=== PATIENT | male | born 1950 ===

== ENCOUNTER 2016-11-14 16:54 | Observation (INO) | payer MEDICARE ==
[2016-11-14] MEDS ORDERED: Enoxaparin 40 mg Syringe SC STA (17:39)
--- NOTE | 2016-11-14 17:42 | C.PDOC ---
History Of Present Illness 66 year old male was referred to the ED by PMD for evaluation of complaints of two episodes of left sided chest pain. Patient was seen by PMD Dr. Damon and had a stable EKG thought q-waves in inferior leads. Cardiac Cath @ [facility] approx 2009 without stents placed Time Seen by Provider: 11/14/16 17:17 Chief Complaint (Nursing): Chest Pain History Per: Patient History/Exam Limitations: no limitations Onset/Duration Of Symptoms: Hrs Current Symptoms Are (Timing): Gone Quality: "Pain" Associated Symptoms: denies: Nausea, Dyspnea, Diaphoresis, Syncope Exacerbating Factors: None Alleviating Factors: None Recent travel outside of the [place]: No Additional History Per: Prior Records (Dr. Damon ) Past Medical History Reviewed: Historical Data, Nursing Documentation, Vital Signs Vital Signs: Last Vital Signs Temp 98.1 F 11/14/16 17:15 Pulse 75 11/14/16 17:15 Resp 13 11/14/16 17:15 BP 113/81 11/14/16 17:15 Pulse Ox 96 11/14/16 19:12 - Medical History PMH: Denies: GERD Family History: States: Unknown Family Hx - Social History Hx Alcohol Use: Yes Hx Substance Use: No - Immunization History Hx Tetanus Toxoid Vaccination: No Hx Influenza Vaccination: Yes Review Of Systems Constitutional: Negative for: Fever, Chills Cardiovascular: Positive for: Chest Pain. Negative for: Palpitations Respiratory: Negative for: Cough, Shortness of Breath Gastrointestinal: Negative for: Nausea, Vomiting, Abdominal Pain, Diarrhea Neurological: Negative for: Weakness, Numbness Physical Exam - Physical Exam Appears: Non-toxic, No Acute Distress, Other (Patient is calm, comfortable, and pain free ) Skin: Warm, Dry, No Rash (no chest carlson ) Head: Atraumatic Eye(s): bilateral: Normal Inspection, EOMI Oral Mucosa: Moist Neck: Supple Chest: Symmetrical, No Deformity, Other (Digitally reproducable pain at mid- calvicular line at T2 ) Cardiovascular: Rhythm Regular Respiratory: Normal Breath Sounds, No Rales, No Rhonchi, No Wheezing Gastrointestinal/Abdominal: Soft, No Tenderness, No Distention, No Guarding, No Rebound Extremity: Normal ROM, No Tenderness, No Pedal Edema, No Calf Tenderness, Capillary Refill (good capillary refill, less than two seconds ), No Deformity, No Swelling Neurological/Psych: Oriented x3, Normal Speech, Normal Cognition, Normal Cranial Nerves, Normal Motor, Normal Sensation ED Course And Treatment - Laboratory Results Result Diagrams: 11/14/16 17:47 11/14/16 17:47 Lab Interpretation: Normal (trop neg.) ECG: Interpreted By Me ECG Rhythm: Sinus Rhythm ECG Interpretation: Normal Rate From EC O2 Sat by Pulse Oximetry: 96 (room air ) Pulse Ox Interpretation: Normal - Radiology CXR: Interpreted by Me CXR Interpretation: Yes: No Acute Disease Progress Note: Labs and EKG were performed. Patient was given Aspirin and Lovenox. Reassessment Condition: Unchanged (remains asymptomatic) - Physician Consult Information Outcome Of Conversation: 1729: d/w Dr. Damon- ok to Hospitalists for Cardio eval. 1729: d/w Dr. Mas- referred Cardio- agrees w ED tx and meds. 1909: d/w Hospitalist, adm for this PMD, ok to Tele Obs. Medical Decision Making Medical Decision Making: L parasternal costochondral discomfort is digitally reproducable, no trauma, no rash BUT considering inferior Q^s on EKG more concerning for cardiac etiology, especially considering pt seeking medical clearance for L knee surger (?TKR) but unable to ascertain real exercise tolerance. Tele Obs and Cardio eval w Dr. Mas. Disposition Doctor Will See Patient In The: Hospital Counseled Patient/Family Regarding: Studies Performed, Diagnosis - Disposition Disposition: HOSPITALIZED Disposition Time: 19:11 Condition: GOOD - Clinical Impression Clinical Impression: Chest discomfort, Chest wall discomfort, Abnormal EKG - Scribe Statement The provider has reviewed the documentation as recorded by the Scribjulia Larson All medical record entries made by the Zanderibe were at my direction and personally dictated by me. I have reviewed the chart and agree that the record accurately reflects my personal performance of the history, physical exam, medical decision making, and the department course for this patient. I have also personally directed, reviewed, and agree with the discharge instructions and disposition.
[2016-11-14] MEDS ORDERED: Enoxaparin 30 mg Syringe ONE (17:45)
[2016-11-14] MEDS ORDERED: Enoxaparin 80 mg Syringe ONE (17:46)
[2016-11-14 17:51] LABS: BASO % 0.5 % (0.0-2.0); EOS # 0.2 K/uL (0.0-0.7); EOS % 2.7 % (0.0-4.0); HEMATOCRIT 44.1 % (35.0-51.0); LYMPH # 1.6 K/uL (1.0-4.3); MEAN CELL VOLUME 91.7 fL (80.0-94.0); MEAN CORPUSCULAR HEMOGLOBIN 31.8 pg (27.0-31.0); MEAN CORPUSCULAR HGB CONC 34.7 g/dL (33.0-37.0); MONO # 0.4 K/uL (0.0-0.8); MONO % 7.5 % (0.0-10.0); RED CELL DISTRIBUTION WIDTH 13.7 % (11.5-14.5); WHITE BLOOD COUNT 5.9 K/uL (4.8-10.8)
[2016-11-14 18:13] LABS: CHLORIDE 105 mmol/L (98-107); SODIUM 140 mmol/L (132-148)
[2016-11-14 18:14] LABS: POTASSIUM 3.5 mmol/L (3.6-5.2)
[2016-11-14 18:15] LABS: GFR AFRICAN-AMERICAN > 60
[2016-11-14 18:16] LABS: ALB/GLOB RATIO 1.4 (1.0-2.1); ALKALINE PHOSPHATASE 80 U/L (38-126); ALT/SGPT 32 U/L (21-72); AST/SGOT 21 U/L (17-59); BILIRUBIN,TOTAL 0.7 mg/dL (0.2-1.3); BLOOD UREA NITROGEN 16 mg/dL (9-20); CALCIUM 9.3 mg/dl (8.6-10.4); CARBON DIOXIDE 25 mmol/L (22-30); GLUCOSE,RANDOM 125 mg/dL (75-110); TOTAL PROTEIN 7.1 g/dL (6.3-8.3)
--- NOTE | 2016-11-14 18:56 | RAD ---
HISTORY: SOB COMPARISON: None available. TECHNIQUE: Chest, one view. FINDINGS: Examination limited by habitus. LUNGS: No focal consolidation. Please note that chest x-ray has limited sensitivity for the detection of pulmonary masses. PLEURA: No significant pleural effusion identified. No definite pneumothorax . CARDIOVASCULAR: Heart size appears within normal limits. OSSEOUS STRUCTURES: Degenerative changes. VISUALIZED UPPER ABDOMEN: Unremarkable. OTHER FINDINGS: None. IMPRESSION: No focal consolidation, significant pleural effusion, or definite pneumothorax identified.
--- NOTE | 2016-11-14 20:29 | CP.PCM.HP ---
<Veronica Gisella PRAJAPATI - Last Filed: 11/14/16 20:11> History of Present Illness - History of Present Illness History of Present Illness: cc: "I had sharp pain in my chest" Patient is a 66 year old male with past medical history of hypothyroidism and hyperlipidemia who presents to the ER with complaint of chest pain. Patient states the pain began this afternoon around 3PM. Patient describes this as a sharp, stabbing pain in the left side of his chest that lasted for 10 minutes. Patient states it occurred again while at Dr. Eli's office, who advised patient to go to ER. Patient states that he did not take any medication for the pain and that it went away on its own. Patient states he had a cardiac catheterization 8-10 years ago but was told there was no problem with his arteries and denies stenting. Patient states at that time he was occasionally smoking cigarettes and was told to quit. Patient denies he had chest pain at that time and states he does not know the reason for the catheterization. Patient denies dizziness, light headedness, diaphoresis, shortness of breath, nausea, vomiting. Patient denies radiation of chest pain, denies chest pressure. Interview conducted with [place] video city manager #[id number] PMD: Duyen Eli PMHx: hypothyroidism, hyperlipidemia Meds: levothyroxine 100mcg, zanaflex 2mg HS as needed, simvastatin 20mg, lovaza 2 cap daily (Verified with [facility]) PSHx: cardiac cath 8-10years ago w/o stents, right knee meniscus surgery, partial thyroidectomy FamHx: denies SocialHx: denies tobacco, social alcohol use, denies drugs, lives with girlfriend, works as delivery driver/supervisor Present on Admission - Present on Admission Any Indicators Present on Admission: No Review of Systems - Constitutional Constitutional: Headache (occasional). absent: Chills, Fever - EENT Eyes: absent: Blurred Vision - Cardiovascular Cardiovascular: Chest Pain. absent: Diaphoresis, Dyspnea, Pain Radiating to Arm /Neck/Jaw, Leg Edema, Lightheadedness, Orthopnea, Paroxysmal Nocturnal Dyspnea, Radiating Pain, Rapid Heart Rate - Respiratory Respiratory: absent: Cough, Dyspnea - Gastrointestinal Gastrointestinal: absent: Nausea, Vomiting - Genitourinary Genitourinary: absent: Difficulty Urinating, Dysuria - Musculoskeletal Musculoskeletal: absent: Back Pain, Muscle Weakness - Integumentary Integumentary: absent: Rash, Sores, Swelling - Neurological Neurological: absent: Dizziness, Syncope, Vertigo, Weakness Past Patient History - Past Social History Smoking Status: Never Smoked - MUSCULOSKELETAL/RHEUMATOLOGICAL Other/Comment: Lt. knee torn meniscus - PSYCHIATRIC Hx Substance Use: No - SURGICAL HISTORY Hx Thyroidectomy: Yes - ANESTHESIA Hx Anesthesia: No Hx Anesthesia Reactions: No Meds Allergies/Adverse Reactions: Allergies Allergy/AdvReac Type Severity Reaction Status Date / Time No Known Allergies Allergy Unverified 11/14/16 17:03 Physical Exam - Constitutional Appears: Non-toxic, No Acute Distress - Head Exam Head Exam: ATRAUMATIC, NORMOCEPHALIC - Eye Exam Eye Exam: EOMI - ENT Exam ENT Exam: Mucous Membranes Moist Additional comments: denture - Neck Exam Neck exam: Positive for: Normal Inspection. Negative for: Lymphadenopathy, Tenderness - Respiratory Exam Respiratory Exam: Clear to Auscultation Bilateral, NORMAL BREATHING PATTERN. absent: Rales, Rhonchi, Wheezes - Cardiovascular Exam Cardiovascular Exam: +S1, +S2. absent: Systolic Murmur - GI/Abdominal Exam GI & Abdominal Exam: Normal Bowel Sounds, Soft. absent: Tenderness - Extremities Exam Extremities exam: Positive for: normal inspection. Negative for: calf tenderness, pedal edema - Neurological Exam Neurological exam: Alert, Oriented x3 - Psychiatric Exam Psychiatric exam: Normal Affect, Normal Mood - Skin Skin Exam: Dry, Warm Results - Vital Signs Recent Vital Signs: Last Vital Signs Temp 98.1 F 11/14/16 17:15 Pulse 75 11/14/16 17:15 Resp 13 11/14/16 17:15 BP 113/81 11/14/16 17:15 Pulse Ox 96 11/14/16 19:12 - Labs Result Diagrams: 11/14/16 17:47 11/14/16 17:47 Labs: Laboratory Results - last 24 hr 11/14/16 11/14/16 17:47 17:47 WBC 5.9 RBC 4.81 Hgb 15.3 Hct 44.1 MCV 91.7 MCH 31.8 H MCHC 34.7 RDW 13.7 Plt Count 155 MPV 9.0 Neut % (Auto) 62.3 Lymph % (Auto) 27.0 [place] % (Auto) 7.5 Eos % (Auto) 2.7 Baso % (Auto) 0.5 Neut # 3.6 Lymph # 1.6 [place] # 0.4 Eos # 0.2 Baso # 0.0 Sodium 140 Potassium 3.5 L Chloride 105 Carbon Dioxide 25 Anion Gap 14 BUN 16 Creatinine 0.9 Est GFR ( Amer) > 60 Est GFR (Non-Af Amer) > 60 Random Glucose 125 H Calcium 9.3 Total Bilirubin 0.7 AST 21 ALT 32 Alkaline Phosphatase 80 Troponin I < 0.0120 NT-Pro-B Natriuret Pep 34.9 Total Protein 7.1 Albumin 4.1 Globulin 3.0 Albumin/Globulin Ratio 1.4 Assessment & Plan - Assessment and Plan (Free Text) Assessment: Chest pain, r/o ACS monitor on tele first BRADEN negative, will continue to trend Q waves seen on EKG performed in ER, will repeat Dr. Mas, cardiology, consulted- help appreciated will start crestor 5mg- equivalent to patient's home medication simvastatin 20mg restart home med lovaza start daily ASA 81mg heart healthy diet will check echo, lipid panel, thyroid studies, A1c Hx HLD restart home med lovaza start statin equivalent to home simvastatin Hx Hypothyroidism continue home medication levothyroxine 100mcg daily Prophylactic measure lovenox 40mg sc daily pepcid 20mg daily SCDs Plan D/W Dr. Payne <Vito Payne - Last Filed: 11/15/16 06:14> Results - Vital Signs Recent Vital Signs: Last Vital Signs Temp 97.7 F 11/15/16 04:10 Pulse 68 11/15/16 04:10 Resp 20 11/15/16 04:10 BP 130/65 11/15/16 04:10 Pulse Ox 97 11/15/16 04:10 - Labs Result Diagrams: 11/14/16 17:47 11/14/16 17:47 Labs: Laboratory Results - last 24 hr 11/14/16 11/14/16 11/15/16 22:56 22:56 00:09 Hemoglobin A1c 5.6 Total Creatine Kinase 126 CK-MB (Mass) 1.26 Troponin I, Quant < 0.0120 Thyroxine (T4) 5.12 L TSH 3rd Generation 2.64 Assessment & Plan - Date & Time Date: 11/15/16 (I have seen and examined the patient. I agree with the findings and plan of care as documented by Dr. Martin. Patient with chest pain. History of hyperlipidemia. ROMIx3 with EKG. Aspirin and Statin. Consult to Dr Mas. Monitor on tele for acute changes.) Time: 06:12 Attending/Attestation - Attestation I have personally seen and examined this patient.: Yes I have fully participated in the care of the patient.: Yes I have reviewed all pertinent clinical information: Yes
[2016-11-14] MEDS: Omega-3-Acid Ethyl Esters 1 GM Cap PO SCH (21:04)
[2016-11-14 23:29] LABS: T4 5.12 ug/dL (5.5-11.0)
[2016-11-14 23:43] LABS: THYROID STIMULATING HORMONE 2.64 mIU/L (0.46-4.68)
[2016-11-15 01:54] VITALS: RESP 20
[2016-11-15] MEDS ORDERED: Levothyroxine 100 MCG TAB PO SCH (06:30)
[2016-11-15 07:11] LABS: BASO % 0.8 % (0.0-2.0); EOS # 0.2 K/uL (0.0-0.7); EOS % 3.6 % (0.0-4.0); HEMATOCRIT 46.8 % (35.0-51.0); LYMPH # 1.4 K/uL (1.0-4.3); LYMPH % 28.6 % (20.0-40.0); MEAN CELL VOLUME 92.8 fL (80.0-94.0); MEAN CORPUSCULAR HEMOGLOBIN 30.9 pg (27.0-31.0); MEAN CORPUSCULAR HGB CONC 33.3 g/dL (33.0-37.0); MEAN PLATELET VOLUME 9.5 fL (7.2-11.7); MONO # 0.5 K/uL (0.0-0.8); MONO % 9.1 % (0.0-10.0); NRBC % 0.1 % (0.0-2.0); RED CELL DISTRIBUTION WIDTH 13.8 % (11.5-14.5)
[2016-11-15 07:18] LABS: CHLORIDE 106 mmol/L (98-107)
[2016-11-15 07:19] LABS: POTASSIUM 3.9 mmol/L (3.6-5.2); SODIUM 140 mmol/L (132-148)
[2016-11-15 07:21] LABS: ALB/GLOB RATIO 1.3 (1.0-2.1); AST/SGOT 21 U/L (17-59); BILIRUBIN,TOTAL 0.9 mg/dL (0.2-1.3); CARBON DIOXIDE 23 mmol/L (22-30); CHOLESTEROL 193 mg/dL (0-199); GFR AFRICAN-AMERICAN > 60; TOTAL PROTEIN 6.6 g/dL (6.3-8.3)
[2016-11-15 07:22] LABS: ALKALINE PHOSPHATASE 77 U/L (38-126); ALT/SGPT 37 U/L (21-72); BLOOD UREA NITROGEN 15 mg/dL (9-20); CALCIUM 8.9 mg/dl (8.6-10.4); GLUCOSE,RANDOM 90 mg/dL (75-110)
--- NOTE | 2016-11-15 08:16 | CP.PCM.CON ---
History of Present Illness - History of Present Illness History of Present Illness: patient seen examined. full consult to follow. troponin negative x 3. echo this am. will arrange for outpatient stress test. Past Patient History - Past Social History Smoking Status: Former Smoker - PULMONARY Hx Respiratory Disorders: No - NEUROLOGICAL Hx Neurological Disorder: No - HEENT Hx HEENT Problems: No - RENAL Hx Chronic Kidney Disease: No - ENDOCRINE/METABOLIC Hx Hypothyroidism: Yes - HEMATOLOGICAL/ONCOLOGICAL Hx Blood Transfusions: No - INTEGUMENTARY Hx Dermatological Problems: No - MUSCULOSKELETAL/RHEUMATOLOGICAL Hx Falls: No - GASTROINTESTINAL Hx Gastrointestinal Disorders: No - GENITOURINARY/GYNECOLOGICAL Hx Genitourinary Disorders: No - PSYCHIATRIC Hx Substance Use: No - SURGICAL HISTORY Hx Surgeries: Yes Hx Thyroidectomy: Yes Other/Comment: right knee surgery - ANESTHESIA Hx Anesthesia: No Hx Anesthesia Reactions: No Hx Malignant Hyperthermia: No Has any member of the family had a problem w/ anesthesia?: No Meds Allergies/Adverse Reactions: Allergies Allergy/AdvReac Type Severity Reaction Status Date / Time No Known Allergies Allergy Unverified 11/14/16 17:03 - Medications Medications: Current Medications Acetaminophen (Tylenol 325mg Tab) 650 mg PO Q6 PRN PRN Reason: Headache Aspirin (Aspirin Chewable) 81 mg PO DAILY [facility] Enoxaparin Sodium (Lovenox) 40 mg SC DAILY [facility] Famotidine (Pepcid) 20 mg PO DAILY [facility] Levothyroxine Sodium (Synthroid) 100 mcg PO DAILY@0630 [facility] Last Admin: 11/15/16 06:21 Dose: 100 mcg [id number] Ethyl Esters (Lovaza) 1 gm PO BID [facility] Last Admin: 11/14/16 21:04 Dose: 1 gm Rosuvastatin Calcium (Crestor) 5 mg PO HS [facility] Last Admin: 11/14/16 22:47 Dose: 5 mg Results - Vital Signs Recent Vital Signs: Last Vital Signs Temp 97.7 F 11/15/16 04:10 Pulse 68 11/15/16 04:10 Resp 20 11/15/16 04:10 BP 130/65 11/15/16 04:10 Pulse Ox 97 11/15/16 04:10 - Labs Result Diagrams: 11/15/16 06:57 11/15/16 06:57 Labs: Laboratory Results - last 24 hr 11/14/16 11/14/16 11/15/16 22:56 22:56 00:09 WBC RBC Hgb Hct MCV MCH MCHC RDW Plt Count MPV Neut % (Auto) Lymph % (Auto) [place] % (Auto) Eos % (Auto) Baso % (Auto) Neut # Lymph # [place] # Eos # Baso # Sodium Potassium Chloride Carbon Dioxide Anion Gap BUN Creatinine Est GFR ( Amer) Est GFR (Non-Af Amer) Random Glucose Hemoglobin A1c 5.6 Calcium Total Bilirubin AST ALT Alkaline Phosphatase Total Creatine Kinase 126 CK-MB (Mass) 1.26 Troponin I, Quant < 0.0120 Total Protein Albumin Globulin Albumin/Globulin Ratio Triglycerides Cholesterol LDL Cholesterol Direct HDL Cholesterol Thyroxine (T4) 5.12 L TSH 3rd Generation 2.64 11/15/16 11/15/16 11/15/16 06:57 06:57 06:57 WBC 5.0 RBC 5.05 Hgb 15.6 Hct 46.8 MCV 92.8 MCH 30.9 MCHC 33.3 RDW 13.8 Plt Count 149 MPV 9.5 Neut % (Auto) 57.9 Lymph % (Auto) 28.6 [place] % (Auto) 9.1 Eos % (Auto) 3.6 Baso % (Auto) 0.8 Neut # 2.9 Lymph # 1.4 [place] # 0.5 Eos # 0.2 Baso # 0.0 Sodium 140 Potassium 3.9 Chloride 106 Carbon Dioxide 23 Anion Gap 14 BUN 15 Creatinine 0.8 Est GFR ( Amer) > 60 Est GFR (Non-Af Amer) > 60 Random Glucose 90 Hemoglobin A1c Calcium 8.9 Total Bilirubin 0.9 AST 21 ALT 37 Alkaline Phosphatase 77 Total Creatine Kinase 123 CK-MB (Mass) 1.22 Troponin I, Quant < 0.0120 Total Protein 6.6 Albumin 3.8 Globulin 2.9 Albumin/Globulin Ratio 1.3 Triglycerides 486 H Cholesterol 193 LDL Cholesterol Direct 77 HDL Cholesterol 27 L Thyroxine (T4) TSH 3rd Generation
--- NOTE | 2016-11-15 08:17 | CP.PCM.CON ---
History of Present Illness - History of Present Illness History of Present Illness: I was asked to see patient by the hospitalist team. Patient is a 66 year old male with a pMH HTN who complained of intermittent chest pain. the patietn deve;oped pain one week ago, described as intermittent substernal and nonradiating. The patient also had associated cough. Review of Systems - Constitutional Constitutional: absent: As Per HPI, Anorexia, Chills, Daytime Sleepiness, Excessive Sweating, Fatigue, Fever, Frequent Falls, Headache, Increased Appetite , Lethargy, Malaise, Night Sweats, Snoring, Sleep Apnea, Weight Gain, Weight Loss, Weakness, Other - EENT Eyes: absent: As Per HPI, Blind Spots, Blurred Vision, Change in Vision, Decreased Night Vision, Diplopia, Discharge, Dry Eye, Exophthalmos, Floaters, Irritation, Itchy Eyes, Loss of Peripheral Vision, Pain, Photophobia, Requires Corrective Lenses, Sees Flashes, Spots in Vision, Tunnel Vision, Other Visual Disturbances, Loss of Vision, Other Nose/Mouth/Throat: absent: As Per HPI, Epistaxis, Nasal Congestion, Nasal Discharge, Nasal Obstruction, Nasal Trauma, Nose Pain, Post Nasal Drip, Sinus Pain, Sinus Pressure, Bleeding Gums, Change in Voice, Dental Pain, Dry Mouth, Dysphagia, Halitosis, Hoarsness, Lip Swelling, Mouth Lesions, Mouth Pain, Odynophagia, Sore Throat, Throat Swelling, Tongue Swelling, Facial Pain, Neck Pain, Neck Mass, Other - Cardiovascular Cardiovascular: Chest Pain - Respiratory Respiratory: absent: As Per HPI, Cough, Dyspnea, Hemoptysis, Dyspnea on Exertion , Wheezing, Snoring, Stridor, Pain on Inspiration, Chest Congestion, Excessive Mucous Production, Change in Mucous Color, Pain with Coughing, Other - Gastrointestinal Gastrointestinal: absent: As Per HPI, Abdominal Pain, Belching, Bloating, Change in Bowel Habits, Change in Stool Character, Coffee Ground Emesis, Constipation, Cramping, Diarrhea, Dyspepsia, Dysphagia, Early Satiety, Excessive Flatus, Fecal Incontinence, Heartburn, Hematemesis, Hematochezia, Loose Stools, Melena, Nausea, Odynophagia, Temesmus, Vomiting, Other - Genitourinary Genitourinary: absent: As Per HPI, Change in Urinary Stream, Difficulty Urinating, Dysuria, Flank Pain, Hematuria, Pyuria, Nocturia, Urinary Incontinence, Urinary Frequency, Urinary Hesitance, Urinary Urgency, Voiding Freq/Small Amts, Freq UTI, Hx Renal/Bladder Calculi, Hx /Renal Surgery, Bladder Distension, Other - Musculoskeletal Musculoskeletal: absent: As Per HPI, Abnormal Gait, Arthralgias, Atrophy, Back Pain, Deformity, Joint Swelling, Limited Range of Motion, Loss of Height, Muscle Cramps, Muscle Weakness, Myalgias, Neck Pain, Numbness, Radiating Pain into Limb, Stiffness, Tingling, Other - Integumentary Integumentary: absent: As Per HPI, Acne, Alopecia, Bleeding Lesions, Change in Hair, Change in Nails, Change in Pigmentation, Changing Lesions, Dry Skin, Erythema, Furuncle, Hirsutism, Lesions, New Lesions, Non-Healing Lesions, Photosensitivity, Pruritus, Rash, Skin Pain, Skin Ulcer, Sores, Striae, Swelling , Unusual Bruising, Wounds, Jaundice, Other - Neurological Neurological: absent: As Per HPI, Abnormal Gait, Abnormal Hearing, Abnormal Movements, Abnormal Speech, Behavioral Changes, Burning Sensations, Confusion, Convulsions, Disequilibrium, Dizziness, Numbness, Focal Weakness, Frequent Falls , Headaches, Lack of Coordination, Loss of Vision, Memory Loss, Paresthesias, Radicular Pain, Restless Legs, Sensory Deficit, Syncope, Tingling, Tremor, Vertigo, Weakness, Other Visual Disturbances, Other - Psychiatric Psychiatric: absent: As Per HPI, Abnormal Sleep Pattern, Anhedonia, Anxiety, Auditory Hallucinations, Behavioral Changes, Change in Appetite, Change in Libido, Confusion, Depression, Difficulty Concentrating, Hallucinations, Homicidal Ideation, Hopelessness, Irritability, Memory Loss, Mood Swings, Panic Attacks, Paranoia, Suicidal Ideation, Visual Hallucinations, Tactile Hallucinations, Other - Endocrine Endocrine: absent: As Per HPI, Change in Body Appearance, Change in Libido, Cold Intolorance, Deepening of Voice, Excessive Sweating, Fatigue, Flushing, Heat Intolorance, Increase in Ring/Shoe/Hat Size, Palpitations, Polydipsia, Polyphagia, Polyuria, Other Past Patient History - Past Social History Smoking Status: Former Smoker - PULMONARY Hx Respiratory Disorders: No - NEUROLOGICAL Hx Neurological Disorder: No - HEENT Hx HEENT Problems: No - RENAL Hx Chronic Kidney Disease: No - ENDOCRINE/METABOLIC Hx Hypothyroidism: Yes - HEMATOLOGICAL/ONCOLOGICAL Hx Blood Transfusions: No - INTEGUMENTARY Hx Dermatological Problems: No - MUSCULOSKELETAL/RHEUMATOLOGICAL Hx Falls: No - GASTROINTESTINAL Hx Gastrointestinal Disorders: No - GENITOURINARY/GYNECOLOGICAL Hx Genitourinary Disorders: No - PSYCHIATRIC Hx Substance Use: No - SURGICAL HISTORY Hx Surgeries: Yes Hx Thyroidectomy: Yes Other/Comment: right knee surgery - ANESTHESIA Hx Anesthesia: No Hx Anesthesia Reactions: No Hx Malignant Hyperthermia: No Has any member of the family had a problem w/ anesthesia?: No Meds Home Medications: Home Medication List Medication Instructions Recorded Confirmed Type Aspirin [Aspirin Chewable] 81 mg PO DAILY 11/15/16 Rx Levothyroxine [Synthroid] 100 mcg PO DAILY@0630 tab 11/15/16 Rx [id number] Ethyl Esters 1 GM 1 gm PO BID sgl 11/15/16 Rx [Lovaza] Allergies/Adverse Reactions: Allergies Allergy/AdvReac Type Severity Reaction Status Date / Time No Known Allergies Allergy Unverified 11/14/16 17:03 - Medications Medications: Current Medications Acetaminophen (Tylenol 325mg Tab) 650 mg PO Q6 PRN PRN Reason: Headache Aspirin (Aspirin Chewable) 81 mg PO DAILY [facility] Enoxaparin Sodium (Lovenox) 40 mg SC DAILY [facility] Famotidine (Pepcid) 20 mg PO DAILY [facility] Levothyroxine Sodium (Synthroid) 100 mcg PO DAILY@0630 [facility] Last Admin: 11/15/16 06:21 Dose: 100 mcg Tmcut-1-Vndc Ethyl Esters (Lovaza) 1 gm PO BID [facility] Last Admin: 11/14/16 21:04 Dose: 1 gm Rosuvastatin Calcium (Crestor) 5 mg PO HS [facility] Last Admin: 11/14/16 22:47 Dose: 5 mg Physical Exam - Constitutional Appears: Non-toxic - Head Exam Head Exam: NORMAL INSPECTION - Eye Exam Eye Exam: Normal appearance - Neck Exam Neck exam: Positive for: Full Rom - Respiratory Exam Respiratory Exam: NORMAL BREATHING PATTERN - Cardiovascular Exam Cardiovascular Exam: REGULAR RHYTHM - GI/Abdominal Exam GI & Abdominal Exam: Normal Bowel Sounds - Rectal Exam Rectal Exam: Deferred - Extremities Exam Extremities exam: Positive for: pedal edema - Back Exam Back exam: NORMAL INSPECTION - Neurological Exam Neurological exam: Alert, Oriented x3 - Psychiatric Exam Psychiatric exam: Normal Affect - Skin Skin Exam: Normal Color Results - Vital Signs Recent Vital Signs: Last Vital Signs Temp 97.7 F 11/15/16 04:10 Pulse 68 11/15/16 04:10 Resp 20 11/15/16 04:10 BP 130/65 11/15/16 04:10 Pulse Ox 97 11/15/16 04:10 - Labs Result Diagrams: 11/15/16 06:57 11/15/16 06:57 Labs: Laboratory Results - last 24 hr 11/14/16 11/14/16 11/15/16 22:56 22:56 00:09 WBC RBC Hgb Hct MCV MCH MCHC RDW Plt Count MPV Neut % (Auto) Lymph % (Auto) [place] % (Auto) Eos % (Auto) Baso % (Auto) Neut # Lymph # [place] # Eos # Baso # Sodium Potassium Chloride Carbon Dioxide Anion Gap BUN Creatinine Est GFR ( Amer) Est GFR (Non-Af Amer) Random Glucose Hemoglobin A1c 5.6 Calcium Total Bilirubin AST ALT Alkaline Phosphatase Total Creatine Kinase 126 CK-MB (Mass) 1.26 Troponin I, Quant < 0.0120 Total Protein Albumin Globulin Albumin/Globulin Ratio Triglycerides Cholesterol LDL Cholesterol Direct HDL Cholesterol Thyroxine (T4) 5.12 L TSH 3rd Generation 2.64 11/15/16 11/15/16 11/15/16 06:57 06:57 06:57 WBC 5.0 RBC 5.05 Hgb 15.6 Hct 46.8 MCV 92.8 MCH 30.9 MCHC 33.3 RDW 13.8 Plt Count 149 MPV 9.5 Neut % (Auto) 57.9 Lymph % (Auto) 28.6 [place] % (Auto) 9.1 Eos % (Auto) 3.6 Baso % (Auto) 0.8 Neut # 2.9 Lymph # 1.4 [place] # 0.5 Eos # 0.2 Baso # 0.0 Sodium 140 Potassium 3.9 Chloride 106 Carbon Dioxide 23 Anion Gap 14 BUN 15 Creatinine 0.8 Est GFR ( Amer) > 60 Est GFR (Non-Af Amer) > 60 Random Glucose 90 Hemoglobin A1c Calcium 8.9 Total Bilirubin 0.9 AST 21 ALT 37 Alkaline Phosphatase 77 Total Creatine Kinase 123 CK-MB (Mass) 1.22 Troponin I, Quant < 0.0120 Total Protein 6.6 Albumin 3.8 Globulin 2.9 Albumin/Globulin Ratio 1.3 Triglycerides 486 H Cholesterol 193 LDL Cholesterol Direct 77 HDL Cholesterol 27 L Thyroxine (T4) TSH 3rd Generation - EKG Data EKG Interpreted by: Myself Assessment & Plan (1) Chest pain Assessment and Plan: recommend serial cardaic enzymes. If negative can d/c home with outpatient stress test. Status: Acute (2) Hyperlipidemia Status: Chronic
[2016-11-15] MEDS ORDERED: Enoxaparin 40 mg Syringe SC SCH (10:00)
[2016-11-15] MEDS: Omega-3-Acid Ethyl Esters 1 GM Cap PO SCH ×2 (10:16→18:08)
--- NOTE | 2016-11-15 17:27 | CP.PCM.DIS ---
<David Carroll - Last Filed: 11/16/16 02:38> Provider - Provider Date of Admission: 11/14/16 19:25 Attending physician: Vito Payne MD Time Spent in preparation of Discharge (in minutes): 31 Diagnosis - Discharge Diagnosis (1) Chest pain Status: Acute (2) Hyperlipidemia Status: Chronic (3) Hypothyroid Status: Chronic (4) Prophylactic measure Status: Acute Hospital Course - Lab Results Lab Results: Most Recent Lab Values WBC 5.0 K/uL (4.8-10.8) 11/15/16 06:57 RBC 5.05 Mil/uL (4.40-5.90) 11/15/16 06:57 Hgb 15.6 g/dL (12.0-18.0) 11/15/16 06:57 Hct 46.8 % (35.0-51.0) 11/15/16 06:57 MCV 92.8 fL (80.0-94.0) 11/15/16 06:57 MCH 30.9 pg (27.0-31.0) 11/15/16 06:57 MCHC 33.3 g/dL (33.0-37.0) 11/15/16 06:57 RDW 13.8 % (11.5-14.5) 11/15/16 06:57 Plt Count 149 K/uL (130-400) 11/15/16 06:57 MPV 9.5 fL (7.2-11.7) 11/15/16 06:57 Neut % (Auto) 57.9 % (50.0-75.0) 11/15/16 06:57 Lymph % (Auto) 28.6 % (20.0-40.0) 11/15/16 06:57 [place] % (Auto) 9.1 % (0.0-10.0) 11/15/16 06:57 Eos % (Auto) 3.6 % (0.0-4.0) 11/15/16 06:57 Baso % (Auto) 0.8 % (0.0-2.0) 11/15/16 06:57 Neut # 2.9 K/uL (1.8-7.0) 11/15/16 06:57 Lymph # 1.4 K/uL (1.0-4.3) 11/15/16 06:57 [place] # 0.5 K/uL (0.0-0.8) 11/15/16 06:57 Eos # 0.2 K/uL (0.0-0.7) 11/15/16 06:57 Baso # 0.0 K/uL (0.0-0.2) 11/15/16 06:57 Sodium 140 mmol/L (132-148) 11/15/16 06:57 Potassium 3.9 mmol/L (3.6-5.2) 11/15/16 06:57 Chloride 106 mmol/L (98-107) 11/15/16 06:57 Carbon Dioxide 23 mmol/L (22-30) 11/15/16 06:57 Anion Gap 14 (10-20) 11/15/16 06:57 BUN 15 mg/dL (9-20) 11/15/16 06:57 Creatinine 0.8 MG/DL (0.8-1.5) 11/15/16 06:57 Est GFR ( Amer) > 60 11/15/16 06:57 Est GFR (Non-Af Amer) > 60 11/15/16 06:57 Random Glucose 90 mg/dL (75-110) 11/15/16 06:57 Hemoglobin A1c 5.6 % (4.2-6.5) 11/14/16 22:56 Calcium 8.9 mg/dl (8.6-10.4) 11/15/16 06:57 Total Bilirubin 0.9 mg/dL (0.2-1.3) 11/15/16 06:57 AST 21 U/L (17-59) 11/15/16 06:57 ALT 37 U/L (21-72) 11/15/16 06:57 Alkaline Phosphatase 77 U/L (38-126) 11/15/16 06:57 Total Creatine Kinase 123 U/L (55-170) 11/15/16 06:57 CK-MB (Mass) 1.22 ng/mL (0.0-3.38) 11/15/16 06:57 Troponin I < 0.0120 ng/mL (0.00-0.120) 11/14/16 17:47 Troponin I, Quant < 0.0120 ng/mL (0.00-0.120) 11/15/16 06:57 NT-Pro-B Natriuret Pep 34.9 pg/mL (0-900) 11/14/16 17:47 Total Protein 6.6 g/dL (6.3-8.3) 11/15/16 06:57 Albumin 3.8 g/dL (3.5-5.0) 11/15/16 06:57 Globulin 2.9 gm/dL (2.2-3.9) 11/15/16 06:57 Albumin/Globulin Ratio 1.3 (1.0-2.1) 11/15/16 06:57 Triglycerides 486 mg/dL (0-149) H 11/15/16 06:57 Cholesterol 193 mg/dL (0-199) 11/15/16 06:57 LDL Cholesterol Direct 77 mg/dL (0-129) 11/15/16 06:57 HDL Cholesterol 27 mg/dL (30-70) L 11/15/16 06:57 Thyroxine (T4) 5.12 ug/dL (5.5-11.0) L 11/14/16 22:56 TSH 3rd Generation 2.64 mIU/L (0.46-4.68) 11/14/16 22:56 - Hospital Course Hospital Course: On Admission: "Patient is a 66 year old male with past medical history of hypothyroidism and hyperlipidemia who presents to the ER with complaint of chest pain. Patient states the pain began this afternoon around 3PM. Patient describes this as a sharp, stabbing pain in the left side of his chest that lasted for 10 minutes. Patient states it occurred again while at Dr. Eli's office, who advised patient to go to ER. Patient states that he did not take any medication for the pain and that it went away on its own. Patient states he had a cardiac catheterization 8-10 years ago but was told there was no problem with his arteries and denies stenting. Patient states at that time he was occasionally smoking cigarettes and was told to quit. Patient denies he had chest pain at that time and states he does not know the reason for the catheterization. Patient denies dizziness, light headedness, diaphoresis, shortness of breath, nausea, vomiting. Patient denies radiation of chest pain, denies chest pressure. " Hospital Course: Patient admitted for chest pain. Dr. Mas (cardiology) was consulted. Serial troponins and EKG were unremarkable. CXR showed no consolidation, pleural effusion or pneumothorax. Lipid panel showed elevated triglycerides at 486. Patient is stable for discharge to home per Dr. Mas and medical team. Dr. Mas recommends that patient start Aspirin 81mg PO daily. Patient instructed to follow up with his primary care physician, Dr. Eli and cable puller, Dr. Mas, within 7-[address] Mas recommends outpatient stress test as the next step in management. This is a summary of the hospital course. Please refer to the medical records for more information. Please follow up with Dr. Mas in his office within 7-10 days to schedule further work-up. Continue taking your home medications levothyroxine, simvastatin, and Lovaza as they were prescribed. Take a baby aspirin once a day with your breakfast. That is the Aspirin 81 mg that you can buy over the counter at your local pharmacy. Please follow up with your primary care physician within 7-10 days of discharge. Por favor, siga con el Dr. Msa en [facility] dentro de 7-10 cazares para programar ms trabajo. Contine tomando tracey medicamentos en casa, levotiroxina, simvastatina y Lovaza, segn se les recet. Higgins chey aspirina del beb chey vez al da con [place] desayuno. Carlos es la aspirina 81 mg que usted puede comprar sin receta en [facility] [facility]. Por favor, siga con [facility] mdico de atencin primaria Dr. Eli dentro de los 7- 10 cazares de hillary. - Date & Time of H&P Date of H&P: 11/15/16 Time of H&P: 17:30 Discharge Exam - Head Exam Head Exam: ATRAUMATIC, NORMAL INSPECTION, NORMOCEPHALIC - Eye Exam Eye Exam: EOMI, PERRL - ENT Exam ENT Exam: Mucous Membranes Moist - Respiratory Exam Respiratory Exam: Clear to PA & Lateral, NORMAL BREATHING PATTERN. absent: Rales, Rhonchi, Wheezes - Cardiovascular Exam Cardiovascular Exam: REGULAR RHYTHM, +S1, +S2 - GI/Abdominal Exam GI & Abdominal Exam: Normal Bowel Sounds, Soft. absent: Tenderness - Extremities Exam Extremities exam: pedal pulses present - Neurological Exam Neurological exam: Alert, Oriented x3 - Skin Skin Exam: Dry, Intact, Normal Color, Warm Discharge Plan - Follow Up Plan Condition: STABLE Disposition: HOME/ ROUTINE Instructions: Aspirin (By mouth), Chest Pain (DC), Heart Healthy Diet (DC) Additional Instructions: Please follow up with Dr. Mas in his office within 7-10 days to schedule further work-up. Continue taking your home medications levothyroxine, simvastatin, and Lovaza as they were prescribed. Take a baby aspirin once a day with your breakfast. That is the Aspirin 81 mg that you can buy over the counter at your local pharmacy. Please follow up with your primary care physician within 7-10 days of discharge. Por favor, siga con el Dr. Mas en [facility] dentro de 7-10 cazares para programar ms trabajo. Contine tomando tracey medicamentos en casa, levotiroxina, simvastatina y Lovaza, segn se les recet. [place] chey aspirina del beb chey vez al da con brower desayuno. Carlos es la aspirina 81 mg que usted puede comprar sin receta en [facility] [facility]. Por favor, siga con [facility] md[facility] de atenc[facility] primaria Dr. Eli dentro de los 7- 10 cazares de hillary. Referrals: Duyen Eli MD [Medical Doctor] - Saige Mas MD [Staff Provider] - <Jared Marie - Last Filed: 11/16/16 16:21> Provider - Provider Date of Admission: 11/14/16 19:25 Attending physician: Vito Payne MD Hospital Course - Lab Results Lab Results: Most Recent Lab Values WBC 5.0 K/uL (4.8-10.8) 11/15/16 06:57 RBC 5.05 Mil/uL (4.40-5.90) 11/15/16 06:57 Hgb 15.6 g/dL (12.0-18.0) 11/15/16 06:57 Hct 46.8 % (35.0-51.0) 11/15/16 06:57 MCV 92.8 fL (80.0-94.0) 11/15/16 06:57 MCH 30.9 pg (27.0-31.0) 11/15/16 06:57 MCHC 33.3 g/dL (33.0-37.0) 11/15/16 06:57 RDW 13.8 % (11.5-14.5) 11/15/16 06:57 Plt Count 149 K/uL (130-400) 11/15/16 06:57 MPV 9.5 fL (7.2-11.7) 11/15/16 06:57 Neut % (Auto) 57.9 % (50.0-75.0) 11/15/16 06:57 Lymph % (Auto) 28.6 % (20.0-40.0) 11/15/16 06:57 [place] % (Auto) 9.1 % (0.0-10.0) 11/15/16 06:57 Eos % (Auto) 3.6 % (0.0-4.0) 11/15/16 06:57 Baso % (Auto) 0.8 % (0.0-2.0) 11/15/16 06:57 Neut # 2.9 K/uL (1.8-7.0) 11/15/16 06:57 Lymph # 1.4 K/uL (1.0-4.3) 11/15/16 06:57 [place] # 0.5 K/uL (0.0-0.8) 11/15/16 06:57 Eos # 0.2 K/uL (0.0-0.7) 11/15/16 06:57 Baso # 0.0 K/uL (0.0-0.2) 11/15/16 06:57 Sodium 140 mmol/L (132-148) 11/15/16 06:57 Potassium 3.9 mmol/L (3.6-5.2) 11/15/16 06:57 Chloride 106 mmol/L (98-107) 11/15/16 06:57 Carbon Dioxide 23 mmol/L (22-30) 11/15/16 06:57 Anion Gap 14 (10-20) 11/15/16 06:57 BUN 15 mg/dL (9-20) 11/15/16 06:57 Creatinine 0.8 MG/DL (0.8-1.5) 11/15/16 06:57 Est GFR ( Amer) > 60 11/15/16 06:57 Est GFR (Non-Af Amer) > 60 11/15/16 06:57 Random Glucose 90 mg/dL (75-110) 11/15/16 06:57 Hemoglobin A1c 5.6 % (4.2-6.5) 11/14/16 22:56 Calcium 8.9 mg/dl (8.6-10.4) 11/15/16 06:57 Total Bilirubin 0.9 mg/dL (0.2-1.3) 11/15/16 06:57 AST 21 U/L (17-59) 11/15/16 06:57 ALT 37 U/L (21-72) 11/15/16 06:57 Alkaline Phosphatase 77 U/L (38-126) 11/15/16 06:57 Total Creatine Kinase 123 U/L (55-170) 11/15/16 06:57 CK-MB (Mass) 1.22 ng/mL (0.0-3.38) 11/15/16 06:57 Troponin I < 0.0120 ng/mL (0.00-0.120) 11/14/16 17:47 Troponin I, Quant < 0.0120 ng/mL (0.00-0.120) 11/15/16 06:57 NT-Pro-B Natriuret Pep 34.9 pg/mL (0-900) 11/14/16 17:47 Total Protein 6.6 g/dL (6.3-8.3) 11/15/16 06:57 Albumin 3.8 g/dL (3.5-5.0) 11/15/16 06:57 Globulin 2.9 gm/dL (2.2-3.9) 11/15/16 06:57 Albumin/Globulin Ratio 1.3 (1.0-2.1) 11/15/16 06:57 Triglycerides 486 mg/dL (0-149) H 11/15/16 06:57 Cholesterol 193 mg/dL (0-199) 11/15/16 06:57 LDL Cholesterol Direct 77 mg/dL (0-129) 11/15/16 06:57 HDL Cholesterol 27 mg/dL (30-70) L 11/15/16 06:57 Thyroxine (T4) 5.12 ug/dL (5.5-11.0) L 11/14/16 22:56 TSH 3rd Generation 2.64 mIU/L (0.46-4.68) 11/14/16 22:56 Attending/Attestation - Attestation I have personally seen and examined this patient.: Yes I have fully participated in the care of the patient.: Yes I have reviewed all pertinent clinical information, including history, physical exam and plan: Yes Notes (Text): 11/16/16 16:20 Patient was seen and examined at bedside Patient denies any chest pain And cardiac workup is negative And patient is clear for discharge by cable puller Dr. Mas Patient will follow-up with the his PMD and with the cable puller as outpatient for further testing including stress test I agree with the discharge note by the resident.
[2016-11-15 18:09] VITALS: BP 106/68; PULSE 62; TEMP 97.8; O2SAT 20
--- NOTE | 2016-11-17 17:46 | CARD ---
APPROVED REPORT EKG Measurement Heart [id number] [place] [id number] <Conclusion> Normal sinus rhythm with sinus arrhythmia Left axis deviation Abnormal ECG
--- NOTE | 2016-11-19 17:52 | CARD ---
APPROVED REPORT EKG Measurement Heart [id number] [place] [id number] <Conclusion> Sinus bradycardia Inferior infarct, age undetermined Abnormal ECG
--- NOTE | 2016-11-20 22:53 | CARD ---
APPROVED REPORT EXAM: Two-dimensional and M-mode echocardiogram with Doppler and color Doppler. Other Information Quality : GoodRhythm : NSR INDICATION Abnormal EKG/Arrhythmia Chest Pain 2D DIMENSIONS IVSd1.1 (0.7-1.1cm)LVDd4.7 (3.9-5.9cm) PWd1.1 (0.7-1.1cm)LVDs3.3 (2.5-4.0cm) FS (%) 28.3 %LVEF (%)54.6 (>50%) M-Mode DIMENSIONS Left Atrium (MM)3.49 (2.5-4.0cm)IVSd0.81 (0.7-1.1cm) Aortic Root4.40 (2.2-3.7cm)LVDd5.39 (4.0-5.6cm) Aortic Cusp Exc.2.28 (1.5-2.0cm)PWd0.73 (0.7-1.1cm) FS (%) 46 %LVDs2.94 (2.0-3.8cm) LVEF (%)76 (>50%) Mitral Valve MV E Pdbohoal05.4cm/sMV A Hmffiqaw83.6cm/sE/A ratio0.6 TDI E/Lateral E'0.0E/Medial E'0.0 Tricuspid Valve TR Peak [id number]/sTR Peak [id number] <Conclusion> Left ventricle: thickness: normal; size: normal; overall ejection fraction: 75%: diastolic filling pressures: normal Mitral valve: annulus: normal: leaflets: normal: excursion: normal; no significant trans-mitral gradient: no significant incompetence: left atrium: normal Aortic valve: leaflets: mild calcific thickening; excursion: normal; no significant trans-aortic gradient: No significant incompetence: aortic root:dilated Right sided Structures: Pulmonary valve: normal; no significant incompetence; Tricuspid valve: normal; no significant incompetence: Intra-cardiac hemodynamics: pulmonary systolic pressures: normal; central venous pressures: normal No pericardial effusion
== END 2016-11-15 19:04 | disposition home or self-care (01) ==
LOC: C.ER 16:54 → C.9E 19:25 → C.6T 20:52
PROVIDERS: ADMIT Family Medicine; ATTEND Family Medicine
DX: R07.89 Other chest pain (principal); R94.31 Abnormal electrocardiogram [ECG] [EKG]; E78.5 Hyperlipidemia, unspecified; E03.9 Hypothyroidism, unspecified
CPT/HCPCS: 36415; 71010; 80053; 80061; 83036; 83880; 84436; 84443; 84484; 85025; 93005; 93306; 96372; 99285; G0378; J1650

== ENCOUNTER 2017-07-30 09:03 | Day surgery (SDC) | payer MEDICARE ==
[2017-07-30] MEDS ORDERED: Lactated Ringer's 1,000 ML IV ONE (12:20)
[2017-07-30] MEDS ORDERED: Propofol 10 mg/ml Inj (20 ML) ONE (12:22)
[2017-07-30] MEDS ORDERED: Lidocaine Hydrochloride 5 ML INJ ONE (12:39)
[2017-07-30 12:48] VITALS: TEMP 97.8
[2017-07-30 13:09] VITALS: O2SAT 100
[2017-07-30 13:57] VITALS: BP 121/67; PULSE 66; RESP 14
== END 2017-07-30 13:40 | disposition home or self-care (01) ==
LOC: C.ENDO 09:03
PROVIDERS: ATTEND Internal Medicine Gastroenterology
DX: K21.9 Gastro-esophageal reflux disease without esophagitis (principal); K29.70 Gastritis, unspecified, without bleeding
CPT/HCPCS: 43239; 88305; 88312; 88342; J2704; J7120